=== PATIENT | female | born 1955 | race American Indian/Alaskan Native ===

== ENCOUNTER 2022-01-07 19:02 | Emergency (ER) | payer OTHER ==
[2022-01-07 19:21] VITALS: BP 160/80
--- NOTE | 2022-01-07 23:31 | Emergency Department Report ---
ED Animal Bite HPI - General Chief Complaint: Animal Bite Stated Complaint: DOG BITE Source: patient Mode of arrival: Ambulatory Limitations: No Limitations - History of Present Illness Initial Comments: Patient is a 66-year-old -[place] female with no past medical history presents to the ED with complaint of acute onset painful bleeding posterior right lower leg multiple puncture wounds after being bitten by her neighbor's dog about 6 hours ago. Patient states that she was cleaning her yard when the neighbors dog which was loose jumped over the fence and bit her on the right lower leg with extensive puncture wounds. Patient states that she is unsure as to the vaccination status of the dog bite is amenable to seeking further clarification from her neighbor. Patient states that at the time this occurred the neighbor was also present. Patient states that she is not up-to-date with her tetanus vaccinations. Patient denies numbness and tingling or weakness of lower extremities bilaterally, headache, fall, nausea and vomiting, low back pain, hip pain or change in vision and syncope. MD Complaint: animal bite, animal-related injury, other (Posterior right lower leg puncture wound due to a dog bite) -: Sudden, hour(s) (6) Location: other (Posterior right lower leg) Right: Leg (Posterior right lower leg) Animal: dog Animal Control Notified: No Description: household pet, immunizations unknown, appeared well Mechanism: bite, contact with mucous membr Pain Description: sharp, constant Severity scale (0 -10): 6 Context: unprovoked Associated Symptoms: bleeding. denies: erythema, discharge from wound, fever, rash, loss of consciousness, cough, headache, diaphoresis Treatments Prior to Arrival: wound dressing(s) - Related Data Patient Tetanus UTD: No (Given tetanus booster vaccination during this visit) Previous Rx's Medication Instructions Recorded Last Taken Type Amoxicillin/Potassium Clav 1 each PO Q12H #20 tab 01/07/22 Unknown Rx [Augmentin 875-125 Tablet] Ibuprofen [Motrin] 800 mg PO Q8HR PRN #30 tablet 01/07/22 Unknown Rx Allergies Allergy/AdvReac Type Severity Reaction Status Date / Time No Known Allergies Allergy Unverified 01/07/22 23:00 ED Review of Systems ROS: Stated complaint: DOG BITE Other details as noted in HPI Constitutional: denies: chills, fever Eyes: denies: eye pain, eye discharge, vision change ENT: denies: ear pain, throat pain Respiratory: denies: cough, shortness of breath, wheezing Cardiovascular: denies: chest pain, palpitations Endocrine: no symptoms reported Gastrointestinal: denies: abdominal pain, nausea, diarrhea Genitourinary: denies: urgency, dysuria, frequency, hematuria, discharge, abnormal menses, dyspareunia Musculoskeletal: arthralgia (Right lower leg pain due to multiple bleeding puncture wounds from a dog bite). denies: back pain, joint swelling Skin: other (Multiple bleeding puncture wounds on posterior right lower leg due to dog bite). denies: rash, lesions Neurological: denies: headache, weakness, paresthesias Psychiatric: denies: anxiety, depression Hematological/Lymphatic: denies: easy bleeding, easy bruising ED Past Medical Hx - Medications Home Medications: Home Medications Medication Instructions Recorded Confirmed Last Taken Type Amoxicillin/Potassium Clav 1 each PO Q12H #20 tab 01/07/22 Unknown Rx [Augmentin 875-125 Tablet] Ibuprofen [Motrin] 800 mg PO Q8HR PRN #30 tablet 01/07/22 Unknown Rx ED Physical Exam - General Limitations: No Limitations General appearance: alert, in no apparent distress - Head Head exam: Present: atraumatic, normocephalic, normal inspection - Eye Eye exam: Present: normal appearance, PERRL, EOMI Pupils: Present: normal accommodation - ENT ENT exam: Present: normal exam, normal orophraynx, mucous membranes moist, TM's normal bilaterally, normal external ear exam - Neck Neck exam: Present: normal inspection, full ROM. Absent: tenderness - Respiratory Respiratory exam: Present: normal lung sounds bilaterally. Absent: respiratory distress, wheezes, rales, rhonchi, chest wall tenderness, accessory muscle use, decreased breath sounds, prolonged expiratory - Cardiovascular Cardiovascular Exam: Present: regular rate, normal rhythm, normal heart sounds. Absent: systolic murmur, diastolic murmur, rubs, gallop - GI/Abdominal GI/Abdominal exam: Present: soft, normal bowel sounds. Absent: tenderness, guarding, hyperactive bowel sounds, hypoactive bowel sounds, organomegaly, mass - Extremities Exam Extremities exam: Present: normal inspection, full ROM, tenderness (Palpable tenderness of right lower leg due to multiple bleeding puncture wounds from dog bite), normal capillary refill, calf tenderness (Palpable posterior right lower leg tenderness due to bleeding multiple puncture wounds from dog bite). Absent: pedal edema, joint swelling - Back Exam Back exam: Present: normal inspection, full ROM. Absent: tenderness, CVA tenderness (L), muscle spasm, paraspinal tenderness, vertebral tenderness - Neurological Exam Neurological exam: Present: alert, oriented X3, CN II-XII intact, normal gait, reflexes normal - Psychiatric Psychiatric exam: Present: normal affect, normal mood - Skin Skin exam: Present: warm, dry, intact, normal color, other (Multiple bleeding puncture wounds on posterior right lower leg from dog bite). Absent: rash ED Course Vital Signs 01/07/22 19:19 Temperature 98.3 F Pulse Rate 89 Respiratory 16 Rate Blood Pressure 160/80 O2 Sat by Pulse 99 Oximetry - Reevaluation(s) Reevaluation #1: 01/07/22 23:33 The posterior right lower leg bleeding puncture wounds were cleaned extensively with normal saline and Betadine solutions. The wounds were then dressed appropriately with 4 x 4 gauzes and Kerlix and the patient was discharged home on pain medications and prophylactic antibiotics. Patient was advised to return to the ED immediately if symptoms get worse, otherwise follow-up with her primary care physician in 7 to 10 days for reevaluation. Critical care attestation.: If time is entered above; I have spent that time in minutes in the direct care of this critically ill patient, excluding procedure time. ED Disposition Clinical Impression: Dog bite of multiple sites of right lower extremity Qualifiers: Encounter type: initial encounter Qualified Code(s): S81.851A - Open bite, right lower leg, initial encounter; W54.0XXA - Bitten by dog, initial encounter Puncture wound of right lower leg Qualifiers: Encounter type: initial encounter Qualified Code(s): S81.831A - Puncture wound without foreign body, right lower leg, initial encounter Disposition: 01 HOME / SELF CARE / HOMELESS Is pt being admited?: No Does the pt Need Aspirin: No Condition: Stable Instructions: Animal Bite, Adult, [id number], Puncture Wound, [id number] Additional Instructions: Take medications as advised, drink plenty of fluids, follow-up with your primary care physician in 7 to 10 days for reevaluation. Ensure that the dog is fully vaccinated, if not fully vaccinated, return to the ED immediately for prophylactic rabies vaccination. Otherwise return to the ED immediately if your symptoms get worse. Prescriptions: Amoxicillin/Potassium Clav [Augmentin 875-125 Tablet] 1 each PO Q12H #20 tab Ibuprofen [Motrin] 800 mg PO Q8HR PRN #30 tablet PRN Reason: Pain , Severe (7-10) Referrals: AMANDA CASANOVA MD [Staff Physician] - 7-10 days Time of Disposition: 23:32 Print Language: SERBIAN
[2022-01-07] MEDS ORDERED: AMOXICILLIN/K CLAV 875/125MG TAB PO ONE (23:39)
[2022-01-07] MEDS ORDERED: IBUPROFEN 600 MG TAB PO ONE (23:39)
[2022-01-07] MEDS ORDERED: TETANUS,DIPH,PERTUSS(ACELL) VACCINE 0.5 ML SYRINGE IM ONE (23:39)
== END 2022-01-07 23:49 | disposition home or self-care (01) ==
LOC: ED 19:02
DX: S81.851A Open bite, right lower leg, initial encounter (principal); S81.831A Puncture wound without foreign body, right lower leg, initial encounter; W54.0XXA Bitten by dog, initial encounter; Y93.89 Activity, other specified; Y92.89 Other specified places as the place of occurrence of the external cause; Y99.8 Other external cause status
CPT/HCPCS: 90471; 90715; 99282

== ENCOUNTER 2022-01-10 13:50 | Emergency (ER) | payer OTHER ==
[2022-01-10 14:06] VITALS: BP 135/63
--- NOTE | 2022-01-10 15:44 | Emergency Department Report ---
ED General Adult HPI - General Chief complaint: Animal Bite Stated complaint: DOG BITE Time Seen by Provider: 01/10/22 15:25 Source: patient Mode of arrival: Ambulatory Limitations: No Limitations - History of Present Illness Initial comments: Patient with no significant past medical history presents to the ER today requesting rabies vaccination. Patient apparently was bitten by her neighbors dog 3 days ago. She came here to the ER and was evaluated. She states she was given a prescription for Augmentin as well as ibuprofen for pain. She states t hat she was informed to notify animal control to see if they could get a hold of the dog before initiating rabies vaccine. Patient states that animal control was notified yesterday, and when they went to get the dog from the neighbors house, the neighbor reported to them that she let the dog go. She reports that animal control search for the dog and she was informed that they were unable to find the dog. Patient reports that her neighbor told her that the dog was not vaccinated. Complaint: Dog bite/Rabies shot -: days(s) - Related Data Previous Rx's Medication Instructions Recorded Last Taken Type Amoxicillin/Potassium Clav 1 each PO Q12H #20 tab 01/07/22 Unknown Rx [Augmentin 875-125 Tablet] Ibuprofen [Motrin] 800 mg PO Q8HR PRN #30 tablet 01/07/22 Unknown Rx Allergies Allergy/AdvReac Type Severity Reaction Status Date / Time No Known Allergies Allergy Unverified 01/07/22 23:00 ED Review of Systems ROS: Stated complaint: DOG BITE Other details as noted in HPI ED Past Medical Hx - Past Medical History Previous Medical History?: No - Surgical History Past Surgical History?: No - Medications Home Medications: Home Medications Medication Instructions Recorded Confirmed Last Taken Type Amoxicillin/Potassium Clav 1 each PO Q12H #20 tab 01/07/22 Unknown Rx [Augmentin 875-125 Tablet] Ibuprofen [Motrin] 800 mg PO Q8HR PRN #30 tablet 01/07/22 Unknown Rx ED Physical Exam - General Limitations: No Limitations ED Course Vital Signs 01/10/22 14:02 Temperature 98.5 F Pulse Rate 77 Respiratory 16 Rate Blood Pressure 135/63 [Left] O2 Sat by Pulse 98 Oximetry ED Medical Decision Making - Medical Decision Making Patient with no significant past medical history presents to the ER today requesting rabies vaccination. Patient apparently was bitten by her neighbors dog 3 days ago. She came here to the ER and was evaluated. She states she was given a prescription for Augmentin as well as ibuprofen for pain. She states that she was informed to notify animal control to see if they could get a hold of the dog before initiating rabies vaccine. Patient states that animal control was notified yesterday, and when they went to get the dog from the neighbors house, the neighbor reported to them that she let the dog go. She reports that animal control search for the dog and she was informed that they were unable to find the dog. Patient reports that her neighbor told her that the dog was not vaccinated. Discussed the rabies immunoglobulin as well as the vaccination and that she will need to come back to continue the vaccination for 3 additional visits. Informed her that since the wounds have closed up she will need to get the immunoglobulin IM and not based on her weight which could involve multiple injections. Discussed the benefits of the rabies vaccine with her as well that is the risk. Patient states that she wanted to think about it for a few minutes. After few minutes of thinking, went back in the room, patient decided not to have the rabies vaccine or immunoglobulin. Patient wound does not look infected. Recommend that she continue to keep the area clean and continue to take the antibiotics as prescribed to finish it. Patient expressed understanding agree with plan. Patient was stable at time of discharge. Critical care attestation.: If time is entered above; I have spent that time in minutes in the direct care of this critically ill patient, excluding procedure time. ED Disposition Clinical Impression: Dog bite of right lower leg Disposition: 01 HOME / SELF CARE / HOMELESS Is pt being admited?: No Does the pt Need Aspirin: No Condition: Stable Instructions: Animal Bite, Adult, [id number] Additional Instructions: Continue to keep the area clean with soap and water. Dry well after each cleaning. You can apply a thin layer of Neosporin to the wound. Continue taking the antibiotics and complete all of the antibiotics. Elevate the leg to help with any swelling. Return to the ER if your symptoms changes or worsens in any way. Referrals: PRIMARY CARE, [Referring] - 3-5 Days Time of Disposition: 16:01
== END 2022-01-10 16:31 | disposition home or self-care (01) ==
LOC: ED 13:50
DX: S81.851A Open bite, right lower leg, initial encounter (principal)
CPT/HCPCS: 99282